=== PATIENT | female | born 2005 | race African-American/Black ===

== ENCOUNTER 2024-12-08 13:34 | Emergency (ER) | payer MEDICAID ==
[~2024-12-08] VITALS: Ht 162.6 cm; Wt 70.0 kg
[2024-12-08 13:37] VITALS: BP 117/78; PULSE 60; RESP 18; TEMP 36.6; O2SAT 100
[2024-12-08 15:14] LABS: BASOPHILS % 0.8 % (0.0-2.0); EOSINOPHILS % 4.3 % (0.0-5.0); LYMPHOCYTES % 39.2 % (20.0-50.0); MEAN CORPUSCULAR HEMOGLOBIN 25.6 pg (28.0-32.0); MEAN CORPUSCULAR HGB CONC 31.7 g/dL (31.0-37.0); MEAN CORPUSCULAR VOLUME 80.7 fL (81.0-99.0); MEAN PLATELET VOLUME 9.4 fl (7.4-10.4); MONOCYTES % 5.9 % (2.0-8.0); NEUTROPHILS % 49.8 % (40.0-76.0); PLATELET 193 x1000/uL (130-400); RED BLOOD CELL COUNT 5.08 mill/uL (4.2-5.4); RED CELL DISTRIBUTION WIDTH 13.9 % (11.6-14.6); WHITE BLOOD COUNT 6.9 x1000/uL (4.5-11.0)
[2024-12-08 15:21] LABS: CHLORIDE 106 mEq/L (98-107); POTASSIUM 3.9 mEq/L (3.5-5.1); SODIUM 140 mEq/L (136-145)
[2024-12-08 15:22] LABS: CALCIUM 9.8 mg/dL (8.7-10.4); CARBON DIOXIDE 26 mEq/L (21-32)
[2024-12-08] MEDS: SODIUM CHLORIDE 0.9% 1,000 ML IV ONE (15:22)
[2024-12-08 15:27] LABS: CREATININE 0.6 mg/dL (0.6-1.0); GLUCOSE 87 mg/dL (70-105); UREA NITROGEN BLOOD 7 mg/dL (9-23)
[2024-12-08 15:41] LABS: CLARITY URINE CLEAR (CLEAR); COLOR URINE YELLOW (YELLOW); GLUCOSE URINE NEGATIVE (NEGATIVE); KETONES URINE NEGATIVE (NEGATIVE); LEUKOCYTE ESTERASE URINE NEGATIVE (NEGATIVE); NITRITE URINE NEGATIVE (NEGATIVE); OCCULT BLOOD URINE NEGATIVE (NEGATIVE); PH URINE >=9.0 (4.5-8.0); PROTEIN URINE NEGATIVE (NEGATIVE); SPECIFIC GRAVITY URINE 1.018 (1.005-1.030)
[2024-12-08 15:49] LABS: HCG SCREEN NEGATIVE
[2024-12-08 17:08] VITALS: TEMP 97.8
[2024-12-08] MEDS: ACETAMINOPHEN 325MG TABLET PO ONE (17:08)
== END 2024-12-08 17:58 | disposition home or self-care (01) ==
LOC: ER 13:34 → EDBD 13:34 → ER 17:58
DX: R55 Syncope and collapse (principal); E86.0 Dehydration; F41.0 Panic disorder [episodic paroxysmal anxiety]; J45.909 Unspecified asthma, uncomplicated
CPT/HCPCS: 36415; 74018; 80048; 81003; 81025; 84703; 85025; 93005; 96360; 99285

== ENCOUNTER 2025-01-06 14:12 | Emergency (ER) | payer MEDICAID ==
[~2025-01-06] VITALS: Ht 162.6 cm; Wt 68.0 kg
[2025-01-06 14:21] VITALS: TEMP 36.6; O2SAT 100
[2025-01-06] MEDS: KETOROLAC 15MG/ML VIAL IM ONE (19:03)
[2025-01-06] MEDS: CYCLOBENZAPRINE 10MG TABLET PO ONE (19:04)
[2025-01-06] MEDS: BACITRACIN ZINC OINT UDPKT TOP ONE (19:16)
[2025-01-06] MEDS ORDERED: NAPR-681 MT (20:37)
[2025-01-06] MEDS ORDERED: CYCL10TA21 MT (20:37)
[2025-01-06 20:45] VITALS: BP 100/70; PULSE 54; RESP 14; O2SAT 100
== END 2025-01-06 20:49 | disposition home or self-care (01) ==
LOC: ER 14:12
DX: S50.811A Abrasion of right forearm, initial encounter (principal); M54.9 Dorsalgia, unspecified; J45.909 Unspecified asthma, uncomplicated; V89.2XXA Person injured in unspecified motor-vehicle accident, traffic, initial encounter; Y93.89 Activity, other specified; Y92.89 Other specified places as the place of occurrence of the external cause; Y99.8 Other external cause status
CPT/HCPCS: 99284; 71045; 81025; 72100; 73060; 73090; 73130; 73630; 96372; J1885